=== PATIENT | male | born 1980 | race Caucasian/White ===

== ENCOUNTER 2021-11-18 21:04 | Emergency (ER) | payer MEDICAID ==
[2021-11-18 21:27] VITALS: O2SAT 98
--- NOTE | 2021-11-18 21:35 | ERPHSYRPT ---
- History of Present Illness Source: patient, other (SO) Exam Limitations: no limitations Patient Subjective Stated Complaint: pt states he was walking yesterday and had sudden pain in his lt ankle, radiating up leg. states he has hardware in his lt ankle from previous fx. Triage Nursing Assessment: pt alert and oriented, answers questions approp. pt ambulatory with steady gait noted. respirations nonlabored. skin warm and dry. mild swelling noted to lt ankle. pedal pulse and cap refill wnl. Physician History: 40 yo wm s/o ORIF L ankle in [place] 1 year ago presents w L ankle pain after feeling pain while walking in [facility] last night. Pt denies fall/twisting/fever etc. Method of Injury: unknown Occurred: yesterday Quality: constant Severity of Pain-Max: moderate Severity of Pain-Current: moderate Lower Extremities Pain: ankle: left Modifying Factors: Improves With: movement Associated Symptoms: unable to bear weight Hx Tetanus, Diphtheria Vaccination/Date Given: Yes Hx Influenza Vaccination/Date Given: No Hx Pneumococcal Vaccination/Date Given: No Immunizations Up to Date: Yes Travel Risk - International Travel Have you traveled outside of the country in past 3 weeks: No - Coronavirus Screening Are you exhibiting any of the following symptoms?: No Close contact with a COVID-19 positive Pt in past 14-21 Days: No - Vaccine Status Have you recieved a Covid-19 vaccination: No - Review of Systems Constitutional: No Symptoms Eyes: No Symptoms Ears, Nose, & Throat: No Symptoms Respiratory: No Symptoms Cardiac: No Symptoms Abdominal/Gastrointestinal: No Symptoms Genitourinary Symptoms: No Symptoms Skin: No Symptoms Neurological: No Symptoms Psychological: No Symptoms Endocrine: No Symptoms Hematologic/Lymphatic: No Symptoms Immunological/Allergic: Pollen Allergy - Past Medical History Pertinent Past Medical History: No - Past Surgical History Past Surgical History: Yes Gastrointestinal: Hernia Repair Musculoskeletal: Orthopedic Surgery Other Surgical History: lt ankle surgery with hardware, tubes in ears - Social History Smoking Status: Current some day smoker Exposure to second hand smoke: Yes Drug Use: none Patient Lives Alone: No Significant Family History: no pertinent family hx - Nursing Vital Signs Nursing Vital Signs: Initial Vital Signs Temperature 97.2 F 11/18/21 21:12 Pulse Rate 74 11/18/21 21:12 Respiratory Rate 16 11/18/21 21:12 Blood Pressure 116/78 11/18/21 21:12 O2 Sat by Pulse Oximetry 98 11/18/21 21:12 Pain Scale Pain Intensity 6 WNL - Physical Exam General Appearance: no apparent distress Eyes, Ears, Nose, Throat Exam: normal ENT inspection, TMs normal, pharynx normal, moist mucous membranes Neck Exam: normal inspection, non-tender, supple, full range of motion, No Brudzinski, No Kernig's, No meningismus Cardiovascular/Respiratory Exam: normal breath sounds, regular rate/rhythm, heart sounds normal Gastrointestinal/Abdominal Exam: non-tender, soft Back Exam: normal inspection, normal range of motion Hips Exam: bilateral: non-tender, normal inspection, normal range of motion, no evidence of injury Legs Exam: bilateral leg: non-tender, normal inspection, normal range of motion, no evidence of injury Knees Exam: bilateral knee: non-tender, normal inspection, normal range of motion, no evidence of injury Ankle Exam: left ankle: swelling (L ankle w mild edema/TTP laterally/Good pedal pulse, distal sensation, and capillary return) Foot Exam: bilateral foot: non-tender, normal inspection, normal range of motion, no evidence of injury DTR - Lower Extremities Exam: knee (R): 2+, knee (L): 2+ Neuro/Tendon Exam: normal sensation, normal motor functions, normal tendon functions, responds to pain, no evidence tendon injury, No motor deficit, No sensory deficit Mental Status Exam: alert, oriented x 3, cooperative Skin Exam: normal color, warm, dry SpO2 Interpretation: normal SpO2: 98 O2 Delivery: Room Air - Course Nursing assessment & vital signs reviewed: Yes - Radiology Exams Ankle X-ray Interpretation: Interpreted by me (L ankle/Hardware in place/No acute fx) Ordered Tests: Active Orders 24 hr Category Date Time Status Abdoul Bandage Application -[facility] STAT Care 11/18/21 22:00 Completed ANKLE (3 VIEWS) Routine Exams 11/18/21 21:53 Taken - Progress Progress Note: 11/18/21 22:00 Abdoul wrap L ankle per nursing/NVI Pt refuses IM Toradol Counseled pt/family regarding: diagnosis, need for follow-up, rad results - Departure Departure Disposition: Home Clinical Impression: Ankle pain, left Condition: Stable Critical Care Time: No Referrals: RICHARD CABRERA PA [Primary Care Provider] - Follow up/PCP as directed Instructions: Ankle Sprain (DC) Additional Instructions: Abdoul wrap for 3-4 days Motrin/Tylenol for pain Weight bearing as tolerated Ice for 12-24 hours Follow up with your family MD or ankle surgeon
[2021-11-18 22:02] VITALS: BP 121/74; PULSE 82
--- NOTE | 2021-11-21 15:19 | XRAY ---
Exam: 3 view left ankle series. Comparison: [None.] Indication: Patient complains of pain; no recent injury; prior ankle surgery. Findings: AP, oblique, and lateral images of the left ankle were obtained. I see no acute fracture or dislocation of the left ankle. The left ankle mortise is well-preserved. The AP image reveals a well-demarcated radiolucent defect along the lateral aspect of the plafond of the distal left tibia. This probably relates to past surgery. I also note extensive bridging callus/calcification across the syndesmosis of the distal left tibia and fibula extending about 6.3 cm in length. A metallic orthopedic sideplate with 6 adjoining screws is seen fixed to the lateral aspect of the distal left fibula. 2 additional threaded screws traverse the distal left fibula in an anterior to posterior oblique direction. I see no fracture of the fibula. Impression: 1. No acute fracture of the left ankle is seen. 2. Postsurgical changes with metallic orthopedic hardware fixed to the distal left fibula.
== END 2021-11-18 22:07 | disposition home or self-care (01) ==
LOC: ED 21:04
DX: M25.572 Pain in left ankle and joints of left foot (principal); Z87.81 Personal history of (healed) traumatic fracture; Z72.0 Tobacco use; Z28.310 Unvaccinated for COVID-19
CPT/HCPCS: 73610; 99283

== ENCOUNTER 2022-12-17 16:45 | Emergency (ER) | payer MEDICAID ==
--- NOTE | 2022-12-17 16:49 | ERPHSYRPT ---
- History of Present Illness Time Seen by Provider: 12/17/22 16:49 Source: patient Exam Limitations: no limitations Physician History: This is a 42-year-old white male whose had a headache for 2 weeks. It has been intermittent aching and throbbing. It is light and noise sensitive. Patient states that he was seen at [facility] 2 weeks ago. He states that Dr. Hurst, the emergency room physician, told him that his CAT scan of his head was free of any acute problems. Patient has not shown up or followed up with nurse practitioner Isabela Munson in her office. Patient took ibuprofen 500 mg orally at 2 PM without relief. He describes the headache as posterior and aching and throbbing. He has associated dizziness and nausea. Patient did not suffer any acute traumatic injury. Timing/Duration: week(s) (2) Quality: aching, throbbing Head Pain Location: occipital Severity of Pain-Max: moderate Severity of Pain-Current: moderate Recent Head Trauma: occasional headaches Modifying Factors: Improves With: exposure to light, noise Associated Symptoms: dizziness, nausea/vomiting (No vomiting), sensitive to light, No facial pain, No neck pain, No vision changes Previous symptoms: no prior history, recently seen (Patient states that he recently, 2 weeks ago, was seen at [facility] emergency department and they performed a CAT scan of the head. We contacted [facility] but they were unable to locate any recent emergency room visits. The last evaluation of him was in May 2022. Patient states) Allergies/Adverse Reactions: No Known Drug Allergies Allergy (Unverified 12/17/22 16:49) Home Medications: No Reportable Medications [No Reported Medications] 12/17/22 [History] Hx Tetanus, Diphtheria Vaccination/Date Given: Yes Hx Influenza Vaccination/Date Given: No Hx Pneumococcal Vaccination/Date Given: No Travel Risk - International Travel Have you traveled outside of the country in past 3 weeks: No - Coronavirus Screening Are you exhibiting any of the following symptoms?: No Close contact with a COVID-19 positive Pt in past 14-21 Days: No - Vaccine Status Have you recieved a Covid-19 vaccination: No - Review of Systems Constitutional: No Symptoms Eyes: No Symptoms Ears, Nose, & Throat: No Symptoms Respiratory: No Symptoms Cardiac: No Symptoms Abdominal/Gastrointestinal: No Symptoms Genitourinary Symptoms: No Symptoms Musculoskeletal: No Symptoms Skin: No Symptoms Neurological: Headache Psychological: No Symptoms Endocrine: No Symptoms Hematologic/Lymphatic: No Symptoms Immunological/Allergic: No Symptoms All Other Systems: Reviewed and Negative - Past Medical History Pertinent Past Medical History: No - Past Surgical History Past Surgical History: Yes Gastrointestinal: Hernia Repair Musculoskeletal: Orthopedic Surgery Other Surgical History: lt ankle surgery with hardware, tubes in ears - Social History Smoking Status: Current some day smoker Exposure to second hand smoke: Yes Drug Use: none Patient Lives Alone: No Significant Family History: no pertinent family hx - Nursing Vital Signs Nursing Vital Signs: Initial Vital Signs Temperature 98.1 F 12/17/22 16:50 Pulse Rate 84 12/17/22 16:50 Respiratory Rate 18 12/17/22 16:50 Blood Pressure 114/71 12/17/22 16:50 O2 Sat by Pulse Oximetry 96 12/17/22 16:50 Pain Scale Pain Intensity 10 - Physical Exam General Appearance: no apparent distress, alert, anxiety Eye Exam: PERRL/EOMI, eyes nml inspection Ears, Nose, Throat Exam: normal ENT inspection, moist mucous membranes Neck Exam: normal inspection, non-tender, supple, full range of motion Respiratory Exam: normal breath sounds, lungs clear, airway intact, No chest tenderness, No respiratory distress Cardiovascular Exam: regular rate/rhythm, normal heart sounds, normal peripheral pulses Gastrointestinal/Abdominal Exam: soft, No tenderness Back Exam: normal inspection, normal range of motion, No CVA tenderness, No vertebral tenderness Extremity Exam: normal inspection, normal range of motion, pelvis stable Mental Status Exam: alert, oriented x 3, cooperative music autographer Exam: normal hearing, normal speech, PERRL, tongue midline Coordination/Gait Exam: normal gait, normal cerebellar function Motor/Sensory Exam: no motor deficit, no sensory deficit Skin Exam: normal color, warm, dry Lymphatic Exam: No adenopathy SpO2 Interpretation: normal O2 Delivery: Room Air - Course Nursing assessment & vital signs reviewed: Yes Ordered Tests: Active Orders 24 hr Category Date Time Status HEAD WITHOUT CONTRAST [CT] Stat Exams 12/17/22 17:45 Completed Medication Summary Discontinued Medications Generic Name Dose Route Start Last Admin Trade Name Freq PRN Reason Stop Dose Admin Hydromorphone HCl 1 mg 12/17/22 18:27 Hydromorphone 1 Mg/1ml Inj IM 12/17/22 18:28 STAT ONE Ondansetron HCl 4 mg 12/17/22 18:28 Zofran 4 Mg/Udtablet Orally Disintegrating PO 12/17/22 18:29 STAT ONE - Progress Progress: improved, re-examined Air Movement: good Progress Note: 12/17/22 18:04 This patient's medical issue is 1 of low complexity. The level of complexity in the work-up performed is based on review of the patient's past medical history, review the patient's medication list, review the patient's drug allergy list, history present illness and physical findings on examination. This patient work-up includes CAT scan of the head without contrast. I will follow-up on the results of this test and make a determination of the next step in his care. My plan, if the CAT scan of the head without contrast is negative, is to provide the patient injection of Dilaudid 1 mg and Phenergan 5 mg both intramuscularly. He is then to follow-up with his primary care provider for further evaluation m anagement. 12/17/22 18:38 CT scan of the head without contrast is unremarkable study. There is no evidence of any acute intracranial abnormality. Blood Culture(s) Obtained: No Antibiotics given: No Counseled pt/family regarding: diagnosis, need for follow-up, rad results Medical Desision Making - Diagnostic Testing Diagnostic test were ordered, analyzed, and reviewed by me: No Radiological Interpretation: Reviewed by me, Teleradiologist Report - Risk of complications Low Risk: Low risk of morbidity from additional dx testing or treatment - Departure Departure Disposition: Home Clinical Impression: Headache Condition: Stable Critical Care Time: No Referrals: RICHARD CABRERA PA [NON-STAFF PHY W/O PRIVILEGES] - Follow up/PCP as directed Additional Instructions: Take Tylenol and ibuprofen daily to help control headache pain. Take Tylenol 650 mg orally 3 times a day. Take ibuprofen 600 mg with food 3 times a day. Call your primary care provider on 12/19/2022 to make arrangements for follow-up appointment for further evaluation and management.
[2022-12-17 16:56] VITALS: TEMP 98.1
[2022-12-17] MEDS ORDERED: Hydromorphone 1 mg/ml Injection IM ONE (18:27)
[2022-12-17] MEDS ORDERED: ZOFRAN ODT 4 MG PO ONE (18:28)
--- NOTE | 2022-12-17 18:32 | XRAY ---
CLINICAL HISTORY:Headache for 2 weeks COMPARISON:None. TECHNIQUE:Axial noncontrast CT scan of the brain was performed from the skull base to the high parietal region. FINDINGS: No evidence of acute intracranial hemorrhage or major vascular territory infarct. The cortical sulci, fissures, basal cisterns, and ventricles are normal in size and configuration. Cavazos-white matter differentiation is maintained. No midline shifts or deformity. There are coarse calcifications in the falx cerebri. Normal CT appearance of the posterior fossa structures namely the cerebellar hemispheres, brainstem and cerebellar peduncles. The IACs are unremarkable. The cerebello-pontine angles are clear. The pituitary gland, the pineal gland, the optic chiasm is unremarkable. The osseous structures in the skull base are unremarkable. No definite calvarium fractures. Th scanned paranasal sinuses are clear. IMPRESSION: Unremarkable CT scan of the brain. Electronically Signed by: Tomas Apodaca MD. (12/17/2022 17:31:15 POWER CHECKER)
[2022-12-17] MEDS ORDERED: ZOFRAN ODT 4 MG ONE (18:47)
[2022-12-17] MEDS ORDERED: Hydromorphone 1 mg/ml Injection ONE (18:47)
[2022-12-17 19:10] VITALS: BP 104/60; PULSE 72; RESP 16; O2SAT 97
== END 2022-12-17 19:10 | disposition home or self-care (01) ==
LOC: ED 16:45
DX: R51.9 Headache, unspecified (principal); R42 Dizziness and giddiness; R11.0 Nausea; Z28.310 Unvaccinated for COVID-19; Z72.0 Tobacco use
CPT/HCPCS: 70450; 96372; 99283; J1170; Q0162